=== PATIENT | male | born 1970 | race Caucasian/White ===

== ENCOUNTER 2020-06-15 12:14 | Emergency (ER) | payer SELFPAY ==
--- NOTE | 2020-06-15 12:27 | ED.SKABFB ---
HPI - Skin/Abscess/Foreign Bdy General Chief complaint: Skin/Abscess/Foreign Body Stated complaint: rash on ankle swollen Time Seen by Provider: 06/15/20 12:45 Source: patient and RN notes reviewed Mode of arrival: ambulatory Limitations: no limitations History of Present Illness HPI narrative: 49-year male with history of cystic fibrosis presents with concern for bilateral lower ankle edema, redness, pain. Reports symptoms started last night. Reports his significant other has identical symptoms that also started last night. His significant other admits to both her and the patient using IV drugs yesterday. This patient does not admit to using IV drugs. He denies fever, malaise, body aches, cough, shortness of breath. MD complaint: other (Bilateral lower leg edema, pain) Related Data Allergies Allergy/AdvReac Type Severity Reaction Status Date / Time No Known Allergies Allergy Verified 06/15/20 12:48 Review of Systems Review of Systems: Narrative: CONSTITUTIONAL: Denies malaise, chills, sweats, or fever. ENT: Denies rhinorrhea, congestion, sinus pain, otalgia or sore throat. CARDIOVASCULAR: Denies chest pain, palpitations, or edema. RESPIRATORY: Denies cough or dyspnea. GASTROINTESTINAL: Denies abdominal pain, nausea, vomiting, diarrhea SKIN: Reports bilateral lower leg swelling, burning, redness MUSCULOSKELETAL: Denies myalgia. NEUROLOGIC: Denies numbness, weakness, or headache. All systems reviewed & are unremarkable except as noted in HPI and below PMFSH Comments At time of signature, agree with nursing past medical, surgical, social and family history. There is no relevant family history pertinent to the presenting complaint Exam Narrative: Exam Narrative: GENERAL: Well-appearing, well-nourished, and in no acute distress. HEAD: Normocephalic, atraumatic. EYES: PERRLA, conjunctivae clear ENT: Nares clear, turbinates pink, no rhinorrhea or epistaxis. Mucous membranes moist. Oropharynx without erythema or lesions. Tonsils not enlarged and without exudate. NECK: Supple. No lymphadenopathy. CHEST: No respiratory distress. Clear to auscultation. No bony deformities, no asymmetry. Speaks in full sentences. HEART: Regular rate and rhythm. No murmur heard. Normal peripheral pulses. Bilateral ankle edema, nonpitting EXTREMITIES: Normal range of motion. Normal strength and sensation. SKIN: Warm, dry, no rash. Bilateral ankle erythema, warmth NEURO: Alert and oriented x3. PSYCH: Normal mood and affect Course Course Emergency Course: Patient need for further evaluation in the emergency department, patient refuses transfer to the emergency department at this time, offered transfer of EMS, patient refuses. Anticipatory guidance given. Portions of this record may have been created with voice recognition software Vital Signs Vital signs: Vital Signs Temperature 98.8 F 06/15/20 12:29 Pulse Rate 101 H 06/15/20 12:29 Respiratory Rate 16 06/15/20 12:29 Blood Pressure 131/74 06/15/20 12:29 Pulse Oximetry 98 06/15/20 12:29 Temperature 98.8 F 06/15/20 12:29 Pulse Rate 101 H 06/15/20 12:29 Respiratory Rate 16 06/15/20 12:29 Blood Pressure 131/74 06/15/20 12:29 Pulse Oximetry 98 06/15/20 12:29 Reviewed. Patient has been instructed to follow up with her primary care provider within the next week regarding her elevated blood pressure today. MDM - Skin/Abscess/Foreign Bdy MDM Narrative Medical decision making narrative: Does not appear at this time to be erythema multiforme, bullous, SJS, TEN; no evidence at this time to suggest RMSF, endocarditis or Lyme disease; patient looks well, nontoxic and is tolerating oral intake; no neurologic signs or symptoms; no headache, photophobia or neck pain; afebrile; appropriate for initial outpatient treatment; discussed the importance of follow-up, patient agrees; question, viral exanthema, contact dermatitis, allergic dermatitis, eczema, urticaria. No soft palate o
[2020-06-15 12:29] VITALS: BP 131/74; PULSE 101; RESP 16; TEMP 37.1; O2SAT 98
== END 2020-06-15 13:18 | disposition left against medical advice (07) ==
PROVIDERS: Emergency Provider Nurse Practitioner
DX: R60.0 Localized edema (principal)
CPT/HCPCS: 99213; G0463